=== PATIENT | male | born 1985 | race Caucasian/White ===

== ENCOUNTER 2020-02-11 09:46 | Inpatient (IN) ==
[2020-02-11] MEDS ORDERED: Acetaminophen 325 MG TABLET PO ONE (10:04)
[2020-02-11 10:26] LABS: Basophils % 0.3 %; Hematocrit 47.4 % (37.5-50.1); Hemoglobin 15.7 g/dL (12.9-16.9); INR 1.1; Immature Granulocytes % 0.3 % (0-4); Lymphocytes # 0.9 K/mcL (0.6-4.6); Lymphocytes % 28.4 %; Mean Corpuscular HGB Conc 33.1 g/dL (31.6-35.5); Mean Corpuscular Hemoglobin 27.8 pg (28.0-33.3); Mean Platelet Volume 9.3 fL (9.4-12.4); Monocytes # 0.2 K/mcL (0.0-1.3); Monocytes % 7.5 %; Platelet Count 191 K/mcL (140-400); Prothrombin Time 12.5 Seconds (9.4-12.1); Red Blood Count 5.64 M/mcL (4.19-5.50); Red Cell Distribution Width 12.8 % (11.5-14.5); Segmented Neutrophils % 63.5 %; White Blood Count 3.2 K/mcL (4.3-11.1)
[2020-02-11 10:27] LABS: Activated Partial Thrombo Time 34.8 Seconds (26.0-36.0)
[2020-02-11 10:42] LABS: Alanine Aminotransferase 36 Units/L (7-52); Albumin 4.3 g/dL (3.5-5.7); Albumin/Globulin Ratio 1.2 (1.1-2.2); Alkaline Phosphatase 47 Units/L (34-104); Aspartate Amino Transferase 30 Units/L (13-39); BUN/Creatinine Ratio 12 (6-26); Bilirubin,Direct 0.1 mg/dL (0.0-0.2); Bilirubin,Indirect 0.5 mg/dL (0.0-1.0); Bilirubin,Total 0.6 mg/dL (0.3-1.0); Blood Urea Nitrogen 9 mg/dL (6-20); C-Reactive Protein 23 mg/L (Less than 10); Calcium 8.9 mg/dL (8.6-10.3); Carbon Dioxide 24 mEq/L (23-29); Chloride 104 mEq/L (98-107); Globulin 3.5 g/dL (2.4-3.5); Glucose 124 mg/dL (70-105); Lactate Dehydrogenase 214 Units/L (140-271); Magnesium 2.3 mg/dL (1.6-2.6); Osmolality,Calculated 288 (280-300); Potassium 3.8 mEq/L (3.5-5.1); Sodium 139 mEq/L (136-145); Total Protein 7.8 g/dL (6.4-8.9); eGFR For African Americans > 60 (> 60); eGFR For Non-African Americans > 60 (> 60)
[2020-02-11 10:43] LABS: Troponin I < 0.03 ng/mL (< 0.04)
[2020-02-11] MEDS ORDERED: Ondansetron 4 MG/2 ML VIAL IVP STA (10:43)
[2020-02-11 11:01] LABS: Ferritin 372 ng/mL (20-250)
[2020-02-11] MEDS ORDERED: Naloxone 0.4 MG/ML INJ IVP PRN (12:39)
[2020-02-11] MEDS ORDERED: Azithromycin 500 MG in 0.9 % Sodium Chloride 250 ML IVPB SCH (16:00)
[2020-02-11] MEDS ORDERED: cefTRIAXone 2,000 MG in Water for inj. (sterile) 20 ML IVP SCH (16:00)
[2020-02-11] MEDS ORDERED: 0.9 % Sodium Chloride 500 ML ONE (17:03)
[2020-02-11] MEDS: *HR* Enoxaparin 40 MG/0.4 ML SYRINGE SQ SCH (17:16)
[2020-02-11] MEDS: Acetaminophen 325 MG TABLET PO PRN (17:20)
[2020-02-11] MEDS ORDERED: *HR* Promethazine 25 MG/ML VIAL IVP PRN (18:33)
[2020-02-12] MEDS: Acetaminophen 325 MG TABLET PO PRN ×3 (03:36→16:37)
[2020-02-12 03:38] LABS: Hematocrit 43.3 % (37.5-50.1); Hemoglobin 14.6 g/dL (12.9-16.9); Immature Granulocytes % 0.3 % (0-4); Lymphocytes % 32.3 %; Mean Corpuscular HGB Conc 33.7 g/dL (31.6-35.5); Mean Corpuscular Hemoglobin 28.2 pg (28.0-33.3); Mean Corpuscular Volume 83.6 fL (83.0-100.0); Mean Platelet Volume 9.7 fL (9.4-12.4); Monocytes % 7.7 %; Platelet Count 184 K/mcL (140-400); Red Blood Count 5.18 M/mcL (4.19-5.50); Segmented Neutrophils % 59.4 %; White Blood Count 3.1 K/mcL (4.3-11.1)
[2020-02-12 03:39] LABS: Basophils % 0.3 %; Monocytes # 0.2 K/mcL (0.0-1.3); Neutrophils # 1.8 K/mcL (1.6-8.9)
[2020-02-12 04:02] LABS: BUN/Creatinine Ratio 12 (6-26); Blood Urea Nitrogen 9 mg/dL (6-20); Calcium 8.7 mg/dL (8.6-10.3); Carbon Dioxide 26 mEq/L (23-29); Chloride 103 mEq/L (98-107); Glucose 117 mg/dL (70-105); Osmolality,Calculated 286 (280-300); Potassium 4.2 mEq/L (3.5-5.1); Sodium 138 mEq/L (136-145); eGFR For African Americans > 60 (> 60); eGFR For Non-African Americans > 60 (> 60)
[2020-02-12] MEDS: *HR* Enoxaparin 40 MG/0.4 ML SYRINGE SQ SCH (05:31)
[2020-02-12] MEDS ORDERED: Ipratropium 1 PUFF INHALER IH PRN (11:52)
[2020-02-12] MEDS: Benzonatate 100 MG CAPSULE PO PRN (17:59)
[2020-02-13] MEDS: Acetaminophen 325 MG TABLET PO PRN ×2 (00:37→08:15)
[2020-02-13] MEDS: Benzonatate 100 MG CAPSULE PO PRN ×3 (00:37→22:03)
[2020-02-13 04:43] LABS: Hematocrit 43.7 % (37.5-50.1); Hemoglobin 14.7 g/dL (12.9-16.9); Immature Granulocytes % 0.2 % (0-4); Mean Corpuscular HGB Conc 33.6 g/dL (31.6-35.5); Mean Corpuscular Hemoglobin 28.3 pg (28.0-33.3); Mean Platelet Volume 9.5 fL (9.4-12.4); Monocytes # 0.2 K/mcL (0.0-1.3); Monocytes % 5.3 %; Neutrophils # 2.9 K/mcL (1.6-8.9); Platelet Count 193 K/mcL (140-400); Red Cell Distribution Width 13.1 % (11.5-14.5); Segmented Neutrophils % 69.5 %; White Blood Count 4.1 K/mcL (4.3-11.1)
[2020-02-13 05:01] LABS: BUN/Creatinine Ratio 12 (6-26); Blood Urea Nitrogen 9 mg/dL (6-20); Carbon Dioxide 27 mEq/L (23-29); Chloride 103 mEq/L (98-107); Glucose 113 mg/dL (70-105); Osmolality,Calculated 285 (280-300); Potassium 4.2 mEq/L (3.5-5.1); Sodium 138 mEq/L (136-145); eGFR For African Americans > 60 (> 60); eGFR For Non-African Americans > 60 (> 60)
[2020-02-13] MEDS: *HR* Enoxaparin 40 MG/0.4 ML SYRINGE SQ SCH (06:25)
[2020-02-13] MEDS ORDERED: Ketorolac 15 MG/ML VIAL IVP ONE (15:04)
[2020-02-14 02:55] LABS: Hematocrit 43.1 % (37.5-50.1); Hemoglobin 14.6 g/dL (12.9-16.9); Immature Granulocytes % 0.5 % (0-4); Lymphocytes # 1.2 K/mcL (0.6-4.6); Lymphocytes % 27.7 %; Mean Corpuscular HGB Conc 33.9 g/dL (31.6-35.5); Mean Corpuscular Hemoglobin 28.5 pg (28.0-33.3); Mean Corpuscular Volume 84.2 fL (83.0-100.0); Mean Platelet Volume 9.4 fL (9.4-12.4); Monocytes # 0.3 K/mcL (0.0-1.3); Monocytes % 6.9 %; Neutrophils # 2.7 K/mcL (1.6-8.9); Platelet Count 197 K/mcL (140-400); Red Blood Count 5.12 M/mcL (4.19-5.50); Red Cell Distribution Width 13.1 % (11.5-14.5); Segmented Neutrophils % 64.9 %; White Blood Count 4.2 K/mcL (4.3-11.1)
[2020-02-14 03:04] LABS: BUN/Creatinine Ratio 18 (6-26); Blood Urea Nitrogen 12 mg/dL (6-20); Calcium 8.6 mg/dL (8.6-10.3); Carbon Dioxide 26 mEq/L (23-29); Chloride 100 mEq/L (98-107); Glucose 108 mg/dL (70-105); Osmolality,Calculated 280 (280-300); Potassium 4.2 mEq/L (3.5-5.1); Sodium 135 mEq/L (136-145); eGFR For African Americans > 60 (> 60); eGFR For Non-African Americans > 60 (> 60)
[2020-02-14] MEDS: *HR* Enoxaparin 40 MG/0.4 ML SYRINGE SQ SCH (05:46)
[2020-02-14] MEDS: Benzonatate 100 MG CAPSULE PO PRN ×2 (11:03→19:43)
[2020-02-14] MEDS ORDERED: Famotidine 20 MG/2 ML VIAL IVP SCH (18:00)
[2020-02-14] MEDS: Famotidine 20 MG/2 ML VIAL IVP SCH (19:43)
[2020-02-14] MEDS ORDERED: Famotidine 20 MG TABLET PO SCH (21:00)
[2020-02-15 03:26] LABS: Basophils % 0.2 %; Eosinophils % 0.2 %; Hematocrit 43.8 % (37.5-50.1); Hemoglobin 14.4 g/dL (12.9-16.9); Immature Granulocytes % 0.5 % (0-4); Lymphocytes # 1.3 K/mcL (0.6-4.6); Lymphocytes % 30.9 %; Mean Corpuscular HGB Conc 32.9 g/dL (31.6-35.5); Mean Corpuscular Hemoglobin 27.8 pg (28.0-33.3); Mean Corpuscular Volume 84.6 fL (83.0-100.0); Mean Platelet Volume 9.2 fL (9.4-12.4); Monocytes # 0.3 K/mcL (0.0-1.3); Monocytes % 6.3 %; Neutrophils # 2.6 K/mcL (1.6-8.9); Platelet Count 227 K/mcL (140-400); Red Blood Count 5.18 M/mcL (4.19-5.50); Red Cell Distribution Width 13.2 % (11.5-14.5); Segmented Neutrophils % 61.9 %; White Blood Count 4.3 K/mcL (4.3-11.1)
[2020-02-15 03:48] LABS: BUN/Creatinine Ratio 18 (6-26); Blood Urea Nitrogen 12 mg/dL (6-20); Calcium 8.6 mg/dL (8.6-10.3); Carbon Dioxide 26 mEq/L (23-29); Chloride 100 mEq/L (98-107); Glucose 105 mg/dL (70-105); Osmolality,Calculated 284 (280-300); Potassium 4.1 mEq/L (3.5-5.1); Sodium 137 mEq/L (136-145); eGFR For African Americans > 60 (> 60); eGFR For Non-African Americans > 60 (> 60)
[2020-02-15] MEDS: *HR* Enoxaparin 40 MG/0.4 ML SYRINGE SQ SCH (05:15)
[2020-02-15] MEDS: Famotidine 20 MG/2 ML VIAL IVP SCH ×2 (08:56→20:07)
[2020-02-15] MEDS: Benzonatate 100 MG CAPSULE PO PRN (10:24)
[2020-02-16] MEDS: Benzonatate 100 MG CAPSULE PO PRN ×2 (04:28→22:11)
[2020-02-16] MEDS: *HR* Enoxaparin 40 MG/0.4 ML SYRINGE SQ SCH (04:29)
[2020-02-16 04:46] LABS: Basophils % 0.3 %; Eosinophils % 0.5 %; Hematocrit 43.5 % (37.5-50.1); Hemoglobin 14.3 g/dL (12.9-16.9); Immature Granulocytes % 0.5 % (0-4); Lymphocytes # 1.1 K/mcL (0.6-4.6); Lymphocytes % 29.6 %; Mean Corpuscular HGB Conc 32.9 g/dL (31.6-35.5); Mean Corpuscular Hemoglobin 27.6 pg (28.0-33.3); Mean Platelet Volume 9.5 fL (9.4-12.4); Monocytes # 0.4 K/mcL (0.0-1.3); Monocytes % 9.3 %; Neutrophils # 2.3 K/mcL (1.6-8.9); Platelet Count 244 K/mcL (140-400); Red Blood Count 5.18 M/mcL (4.19-5.50); Red Cell Distribution Width 12.9 % (11.5-14.5); Segmented Neutrophils % 59.8 %; White Blood Count 3.8 K/mcL (4.3-11.1)
[2020-02-16 05:08] LABS: BUN/Creatinine Ratio 20 (6-26); Blood Urea Nitrogen 14 mg/dL (6-20); Calcium 8.6 mg/dL (8.6-10.3); Carbon Dioxide 27 mEq/L (23-29); Chloride 103 mEq/L (98-107); Glucose 128 mg/dL (70-105); Osmolality,Calculated 292 (280-300); Potassium 3.9 mEq/L (3.5-5.1); Sodium 140 mEq/L (136-145); eGFR For African Americans > 60 (> 60); eGFR For Non-African Americans > 60 (> 60)
[2020-02-16 05:22] LABS: Platelet Estimate Normal (Normal)
[2020-02-16] MEDS: Famotidine 20 MG/2 ML VIAL IVP SCH ×2 (10:15→20:29)
[2020-02-17] MEDS: *HR* Enoxaparin 40 MG/0.4 ML SYRINGE SQ SCH (04:13)
[2020-02-17 04:34] LABS: Basophils % 0.5 %; Hematocrit 40.1 % (37.5-50.1); Hemoglobin 13.4 g/dL (12.9-16.9); Lymphocytes # 1.2 K/mcL (0.6-4.6); Lymphocytes % 29.1 %; Mean Corpuscular HGB Conc 33.4 g/dL (31.6-35.5); Mean Corpuscular Volume 83.7 fL (83.0-100.0); Mean Platelet Volume 9.3 fL (9.4-12.4); Monocytes # 0.3 K/mcL (0.0-1.3); Monocytes % 7.9 %; Neutrophils # 2.5 K/mcL (1.6-8.9); Platelet Count 261 K/mcL (140-400); Red Blood Count 4.79 M/mcL (4.19-5.50); Red Cell Distribution Width 12.8 % (11.5-14.5); Segmented Neutrophils % 60.5 %; White Blood Count 4.1 K/mcL (4.3-11.1)
[2020-02-17 04:49] LABS: BUN/Creatinine Ratio 17 (6-26); Blood Urea Nitrogen 10 mg/dL (6-20); Calcium 8.4 mg/dL (8.6-10.3); Carbon Dioxide 26 mEq/L (23-29); Chloride 105 mEq/L (98-107); Glucose 119 mg/dL (70-105); Magnesium 2.4 mg/dL (1.6-2.6); Osmolality,Calculated 288 (280-300); Sodium 139 mEq/L (136-145); eGFR For African Americans > 60 (> 60); eGFR For Non-African Americans > 60 (> 60)
[2020-02-17 05:05] LABS: Platelet Estimate Normal (Normal); Reactive Lymphocytes Present (Not Present)
[2020-02-17] MEDS: Famotidine 20 MG/2 ML VIAL IVP SCH ×2 (08:57→19:56)
[2020-02-17] MEDS ORDERED: Promethazine/Codeine Oral Sryup 5 ML UDC PO ONE (16:52)
[2020-02-18] MEDS: *HR* Enoxaparin 40 MG/0.4 ML SYRINGE SQ SCH (04:38)
[2020-02-18 05:22] LABS: Basophils % 0.6 %; Eosinophils # 0.1 K/mcL (0.0-0.6); Eosinophils % 1.7 %; Hematocrit 41.2 % (37.5-50.1); Hemoglobin 13.8 g/dL (12.9-16.9); Immature Granulocytes % 1.3 % (0-4); Lymphocytes # 1.5 K/mcL (0.6-4.6); Lymphocytes % 31.1 %; Mean Corpuscular HGB Conc 33.5 g/dL (31.6-35.5); Mean Corpuscular Hemoglobin 28.6 pg (28.0-33.3); Mean Corpuscular Volume 85.3 fL (83.0-100.0); Mean Platelet Volume 9.3 fL (9.4-12.4); Monocytes # 0.3 K/mcL (0.0-1.3); Monocytes % 6.6 %; Neutrophils # 2.8 K/mcL (1.6-8.9); Platelet Count 259 K/mcL (140-400); Red Blood Count 4.83 M/mcL (4.19-5.50); Red Cell Distribution Width 12.9 % (11.5-14.5); Segmented Neutrophils % 58.7 %; White Blood Count 4.7 K/mcL (4.3-11.1)
[2020-02-18 05:42] LABS: BUN/Creatinine Ratio 12 (6-26); Blood Urea Nitrogen 9 mg/dL (6-20); Calcium 8.7 mg/dL (8.6-10.3); Carbon Dioxide 26 mEq/L (23-29); Chloride 106 mEq/L (98-107); Glucose 109 mg/dL (70-105); Osmolality,Calculated 289 (280-300); Potassium 4.2 mEq/L (3.5-5.1); Sodium 140 mEq/L (136-145); eGFR For African Americans > 60 (> 60); eGFR For Non-African Americans > 60 (> 60)
[2020-02-18 05:52] LABS: Platelet Estimate Normal (Normal)
[2020-02-18] MEDS: Famotidine 20 MG/2 ML VIAL IVP SCH (08:51)
[2020-02-18] MEDS ORDERED: Famotidine 20 MG TABLET PO SCH (09:00)
[2020-02-18] MEDS ORDERED: Promethazine/Codeine Oral Sryup 5 ML UDC PO ONE (10:00)
[2020-02-18 12:53] VITALS: BP 117/56
== END 2020-02-18 15:03 | disposition home or self-care (01) | DRG 871 ==
LOC: EMEROOARM 09:46 → 2NENU 09:46 → SUATTDRO 11:38 → 2NENU 13:05 → SUATTDRO 02-12 16:17
PROVIDERS: ADMIT Internal Medicine; ATTEND Pharmacist